=== PATIENT | male | born 1940 | race Hispanic/Latino ===

== ENCOUNTER → 2024-05-30 | Outpatient (CLI) | payer OTHER ==
[2024-05-30 12:37] LABS: CREATININE 0.8 mg/dL (0.5-1.3)
== END | disposition home or self-care (01) ==
LOC: LAB 10:45
PROVIDERS: ATTEND Student in an Organized Health Care Education/Training Program
DX: R22.2 Localized swelling, mass and lump, trunk (principal)
CPT/HCPCS: 36415; 82565; 84520

== ENCOUNTER → 2024-06-08 | Outpatient (CLI) | payer OTHER ==
[~2024-06-08] MED LIST: GADOTERATE MEGLUMINE 10 MMOL/20 ML VIAL IV ONE
--- NOTE | 2024-06-09 11:15 | HMCIMG ---
MR SHOULDER RIGHT WWO HISTORY: Shoulder pain. Mass COMPARISON: None TECHNIQUE: MRI of the right shoulder was performed utilizing multiple pulse sequences in axial, coronal and sagittal planes. Exam performed with and without IV contrast. FINDINGS: Evidence of inflammatory arthropathy with massive full-thickness rotator cuff tear. Full thickness tearing of subscapularis, infraspinatus and supraspinatus with retraction of all the tendons to the glenoid. Advanced diffuse muscle atrophy. Advanced glenohumeral and AC joint degenerative changes. Significant enhancement of the joint space and the synovium with extruded joint fluid through the AC joint. Significant enhancement surrounding the shoulder, felt to represent septic versus inflammatory arthropathy. Joint aspiration is recommended. Degenerative maceration of the labrum is noted. Obliterated subacromial space with acetabularization of the acromion. Significant subcortical cystic change about the greater tuberosity. Extra articular split tearing along the biceps tendon. Multiple subcentimeter loose bodies identified throughout the joint space, largest which is seen near the superior glenoid, measuring approximately 7 mm diameter. IMPRESSION: 1. Massive rotator cuff tear with full-thickness tears and retraction of all 3 rotator cuff tendons and severe muscle atrophy. 2. Acutely inflamed joint with severe synovitis and extruded glenohumeral joint fluid extending through the acromioclavicular joint. Septic arthritis not excluded. Recommend joint aspiration. 3. Obliterated subacromial space with acetabularization of the acromion and high riding humeral head. 4. Extra articular split tearing and attenuation along the biceps tendon 5. Degenerative maceration of the labrum.
== END | disposition home or self-care (01) ==
LOC: RAH 13:13
PROVIDERS: ATTEND Student in an Organized Health Care Education/Training Program
DX: M75.121 Complete rotator cuff tear or rupture of right shoulder, not specified as traumatic (principal); M19.011 Primary osteoarthritis, right shoulder; R22.2 Localized swelling, mass and lump, trunk; M65.911 Unspecified synovitis and tenosynovitis, right shoulder
CPT/HCPCS: 73223; A9575

== ENCOUNTER → 2024-08-02 | Outpatient (CLI) | payer OTHER ==
--- NOTE | 2024-08-02 11:35 | HMCIMG ---
CT CORONARY CALCIFICATION SCORING: Anatomic images were reviewed. The calcium score is being generated and reported separately. This report is for the visualized anatomy only. Visualized portions of the lungs are clear. Hilar and mediastinal structures appear normal. Osseous structures are unremarkable. Impression: 1. Negative noncardiac anatomic findings. 2. The calcium score is 5258.9 consistent with a large degree of calcified plaque. This is 99th percentile for a patient this age. CT was performed with one or more following dose reduction techniques: automated exposure control, adjustment of the mA and kv according to patient's size, or use of a iterative reconstruction technique.
== END | disposition home or self-care (01) ==
LOC: RAH 10:56
PROVIDERS: ATTEND Family Medicine
DX: Z13.6 Encounter for screening for cardiovascular disorders (principal)
CPT/HCPCS: 75571

== ENCOUNTER → 2024-08-08 | Outpatient (CLI) | payer OTHER ==
[2024-08-08] MEDS: REGADENOSON 0.4 MG/5 ML PF SYG IVP ONE (14:00)
--- NOTE | 2024-08-09 18:04 | HMCSR ---
APPROVED REPORT Height: 5 ft 9in Weight: 199 lbs TEST INDICATIONS CAD The imaging protocol used to acquire images was Rest Tc-99m/stress Tc-99m 1 day Consent: The procedure was explained and understood by the patient. Informerd consent was witnessed Marie GRAHAM RN First, low dose rest was performed then high dose stress. RESTING DATA: The resting ekg shows: NSR Rest SPECT myocardial perfusion imaging was performed in supine position 56 minutes following the int ravenous injection of 10.8 mCi of Tc-99 Sestamibi. Time of rest injection: 847 Date: 08/08/2024 Time of rest imagin Date: 08/08/2024 PHARMACOLOGIC STRESS: Pharmacologic stress test was performed by injecting regadenoson 0.4 mg IV push followed by the intra venous injection of 32.0 mCi of Tc-99 Sestamibi. Time of stress injection: 10:08: Date: 08/08/2024 Time of stress imagin:40: Date: 08/08/2024 Heart Rate at time of stress injection: 54 bpm. Gated Stress SPECT was performed 92 minutes after stress injection. The images were gated to evaluate regional wall motion and calculate left ventricular ejection fracti on. STRESS DETAILS Reason for Termination: Infusion complete Stress Symptoms: Dyspnea Max HR Achieved: 72 bpm % of APMHR Achieved: 53 Max Blood Pressure: 143/77 mmHg Stress ECG: NSR Conclusion No ischemia No infarct LV ejection fraction of 60% Normal LV size at stress and rest Normal LV wall motion No evidence of increased uptake
== END | disposition home or self-care (01) ==
LOC: SHCH 08:31
PROVIDERS: ATTEND Internal Medicine Cardiovascular Disease
DX: I25.10 Atherosclerotic heart disease of native coronary artery without angina pectoris (principal); R06.00 Dyspnea, unspecified
CPT/HCPCS: 78452; 93017; J2785; A9500 ×2